=== PATIENT | female | born 1960 | race Caucasian/White ===

== ENCOUNTER 2017-06-23 17:58 | Inpatient (IN) | payer OTHER ==
[~2017-06-23] VITALS: Ht 165.1 cm; Wt 67.8 kg
[~2017-06-23 17:58] MED LIST: CYCL10TA PO; HYDR-3516 PO; METO25TA3 PO
[2017-06-23 18:25] VITALS: BP 146/72; PULSE 93; RESP 18; TEMP 98.2; O2SAT 95
--- NOTE | 2017-06-23 19:33 | RADRPT ---
EXAM DATE/TIME: 06/23/2017 18:58 [facility] COMPARISON: CHEST SINGLE AP, February 08, 2016, 21:05. INDICATIONS : Cough and short of breath. MEDICAL HISTORY : Bronchiectasis. SURGICAL HISTORY : None. ENCOUNTER: Initial ACUITY: 1 week PAIN SCORE: 0/10 LOCATION: Bilateral chest FINDINGS: PA and lateral views of the chest demonstrate the lungs to be symmetrically aerated with patchy infil trate in the anterior right middle lobe. There is apparent mild infiltrate in the anterior lingula. T he cardiomediastinal contours are unremarkable. Osseous structures are intact. CONCLUSION: Patchy infiltrate in the anterior right middle lobe and apparent mild or infiltrate i n the anterior lingula. The findings are of concern for pneumonia. Pedro Dennis MD on June 23, 2017 at 19:29 Board Certified Radiologist. This report was verified electronically.
[2017-06-23] MEDS ORDERED: SODIUM CHLOR 0.9% 1000 ML INJ 1,000 ML IV SCH (20:38)
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
[2017-06-23 20:47] VITALS: RESP 15; O2SAT 97
[2017-06-23] MEDS: RESP: ALBUTEROL 2.5 MG/IPRATROPIUM 0.5 MG NEB (SCH) INH (20:48)
[2017-06-23 21:08] LABS: AUTOMATED NEUTROPHIL # 17.4 TH/MM3 (1.8-7.7); BASOPHIL # 0.1 TH/MM3 (0-0.2); BASOPHIL % 0.4 % (0.0-2.0); EOSINOPHIL % 0.1 % (0.0-4.0); HEMATOCRIT 42.8 % (35.0-46.0); HEMOGLOBIN 14.6 GM/DL (11.6-15.3); LYMPH % 4.7 % (9.0-44.0); LYMPHOCYTE # 0.9 TH/MM3 (1.0-4.8); MEAN CELL VOLUME 90.3 FL (80.0-100.0); MEAN CORPUSCULAR HEMOGLOBIN 30.7 PG (27.0-34.0); MEAN PLATELET VOLUME 8.2 FL (7.0-11.0); MONO % 3.1 % (0.0-8.0); MONOCYTE # 0.6 TH/MM3 (0-0.9); NEUT % 91.7 % (16.0-70.0); PLATELET COUNT 360 TH/MM3 (150-450); RED BLOOD COUNT 4.74 MIL/MM3 (4.00-5.30); RED CELL DISTRIBUTION WIDTH 12.2 % (11.6-17.2)
[2017-06-23] MEDS ORDERED: cefTRIAXone INJ 2,000 MG in SODIUM CHLORIDE 0.9% INJ 100 ML IV ONE (21:15)
[2017-06-23] MEDS ORDERED: AZITHROMYCIN INJ 500 MG in SODIUM CHLOR 0.9% 250 ML INJ 250 ML IV ONE (21:15)
[2017-06-23 21:39] LABS: ALBUMIN 4.2 GM/DL (3.4-5.0); AST (GOT) 21 U/L (15-37); BICARBONATE 30.1 MEQ/L (21.0-32.0); BLOOD UREA NITROGEN 12 MG/DL (7-18); CALCIUM 9.5 MG/DL (8.5-10.1); CHLORIDE 102 MEQ/L (98-107); CREATININE 0.99 MG/DL (0.50-1.00); GLOMERULAR FILTRATION RATE 58 ML/MIN (>89); GLUCOSE,RANDOM 135 MG/DL (74-106); SODIUM (NA) 140 MEQ/L (136-145)
[2017-06-23 21:44] LABS: ALKALINE PHOSPHATASE 66 U/L (45-117); ALT (GPT) 26 U/L (10-53); TOTAL BILIRUBIN ADULT 0.7 MG/DL (0.2-1.0); TOTAL PROTEIN 8.5 GM/DL (6.4-8.2)
[2017-06-23 22:43] VITALS: BP 132/61; PULSE 93; RESP 16; TEMP 99.1; O2SAT 96
[2017-06-23] MEDS: SODIUM CHLOR 0.9% 1000 ML INJ 1,000 ML IV SCH (23:45)
[2017-06-24 00:54] VITALS: BP 116/55; PULSE 89; RESP 20; TEMP 98.3; O2SAT 96
[2017-06-24] MEDS ORDERED: ZOLPIDEM TARTRATE 10 MG TAB PO ONE (01:00)
[2017-06-24] MEDS: ACETAMINOPHEN 500 MG CPLT PO PRN ×2 (06:50→13:04)
[2017-06-24 08:05] VITALS: BP 109/56; PULSE 78; RESP 17; TEMP 98.5; O2SAT 95
--- NOTE | 2017-06-24 09:35 | HHI.HP ---
HPI Service [facility] Hospitalists Primary Care Physician Johnny Soto MD Admission Diagnosis pneumonia failed outpatient therapy Chief Complaint: continued dry cough is dry, lungs are congested, increased fatigue as well as chills, increased temperature with a maximum temperature of 99.5 Travel History International Travel<30 Days: Yes Contact w/Intl Traveler <30 Da: Yes Name of Country Traveled to: [place] Traveled to Known Affected Are: Yes History of Present Illness This Is a 57-year-old female with history of SVT followed by Dr. Trejo, osteopenia, allergic rhinitis and bronchiectasis who presents for evaluation. Patient went on a cruise to [place] in early May. She reports that initially she began having respiratory symptoms on June 05. Symptoms worsen and she developed cough, fever with maximum temperature 102.7 on June 09. She reports that she was prescribed a 10 day course of doxycycline which she started on June 09. She had significant improvement in her symptoms and she saw her billing and insurance coordinator Dr. Ross June 11. She completed the antibiotics on June 19. She reports that she has had a residual dry cough which worsened. In the ER patient reports that she developed increased fatigue as well as chills, increased temperature with a maximum temperature of 99.5 and this is what prompted her to come to the ER. She reports some chest discomfort when she coughs. She denies abdominal pain, nausea or vomiting, sore throat, rash. Patient reports this is the fourth time she has had pneumonia. Patient reports that she is feeling better today after receiving abx from the ER. Patient had Bronchoscopy November 15, 2015 for right middle lobe infiltrate- negative cultures and chronic inflammation noted on biopsy. Review of Systems Constitutional: COMPLAINS OF: Fatigue, Fever, Chills Respiratory: COMPLAINS OF: Cough, Wheezing, DENIES: Sputum production, Shortness of breath Cardiovascular: COMPLAINS OF: Chest pain (with cough), DENIES: Palpitations, Lower Extremity Edema Gastrointestinal: DENIES: Abdominal pain, Constipation, Diarrhea, Nausea, Vomiting Neurologic: DENIES: Abnormal gait, Headache, Localized weakness Psychiatric: DENIES: Anxiety, Confusion, Depression Past Family Social History Past Medical History osteopenia, allergic rhinitis and bronchiectasis Past Surgical History Exploratory laparotomy, eye surgery, hysterectomy, nephrectomy, right oophorectomy Reported Medications Metoprolol Tartrate 25 Mg Tab 12.5 Mg PO Q12HR Hydrocodone-Acetaminophen 5-325 mg Tab 1 Tab PO Q6H PRN Flexeril (Cyclobenzaprine HCl) 10 Mg Tab 5 Mg PO TID Allergies: Coded Allergies: No Known Allergies (Verified , 02/08/16) Family History Mother age 82 from HTN and chronic renal failure Father age 86 with hx of AF, hypotension and dementia Social History She is a nursery school attendant denies ETOH use, tobacco use or illicit drug use Physical Exam Vital Signs Vital Signs Date Time Temp Pulse Resp B/P (MAP) Pulse Ox O2 Delivery O2 Flow Rate FiO2 06/24/17 08:05 98.5 78 17 109/56 (73) 95 06/24/17 01:35 Room Air 06/24/17 00:54 98.3 89 20 116/55 (75) 96 06/23/17 23:18 06/23/17 22:43 99.1 93 16 132/61 (84) 96 06/23/17 20:47 15 97 Room Air 06/23/17 20:47 81 15 95 Room Air 06/23/17 18:25 98.2 93 18 146/72 (96) 95 Physical Exam GENERAL: This is a well-nourished, well-developed patient, in no apparent distress. SKIN: No rashes, ecchymoses or lesions. Cool and dry. HEAD: Atraumatic. Normocephalic. No temporal or scalp tenderness. EYES: Extraocular motions intact. No scleral icterus. No injection or drainage. CARDIOVASCULAR: Regular rate and rhythm RESPIRATORY: Clear to auscultation. Breath sounds equal bilaterally. GASTROINTESTINAL: Abdomen soft, non-tender, nondistended. MUSCULOSKELETAL: Extremities without clubbing, cyanosis, or edema. No joint tenderness, effusion, or edema noted. No calf tenderness. Negative Homans sign bilaterally. NEUROLOGICAL: Awake and alert. No focal deficits. Motor and sensory grossly within normal limits. Five out of 5 muscle strength in all muscle groups. Normal speech. Laboratory Laboratory Tests Test 06/23/17 20:55 White Blood Count 19.0 Red Blood Count 4.74 Hemoglobin 14.6 Hematocrit 42.8 Mean Corpuscular Volume 90.3 Mean Corpuscular Hemoglobin 30.7 Mean Corpuscular Hemoglobin Concent 34.0 Red Cell Distribution Width 12.2 Platelet Count 360 Mean Platelet Volume 8.2 Neutrophils (%) (Auto) 91.7 Lymphocytes (%) (Auto) 4.7 Monocytes (%) (Auto) 3.1 Eosinophils (%) (Auto) 0.1 Basophils (%) (Auto) 0.4 Neutrophils # (Auto) 17.4 Lymphocytes # (Auto) 0.9 Monocytes # (Auto) 0.6 Eosinophils # (Auto) 0.0 Basophils # (Auto) 0.1 CBC Comment DIFF FINAL Differential Comment Blood Urea Nitrogen 12 Creatinine 0.99 Random Glucose 135 Total Protein 8.5 Albumin 4.2 Calcium Level 9.5 Alkaline Phosphatase 66 Aspartate Amino Transf (AST/SGOT) 21 Alanine Aminotransferase (ALT/SGPT) 26 Total Bilirubin 0.7 Sodium Level 140 Potassium Level 3.5 Chloride Level 102 Carbon Dioxide Level 30.1 Anion Gap 8 Estimat Glomerular Filtration Rate 58 Lactic Acid Level 0.8 Date/Time Source Procedure Growth Status 06/23/17 21:00 Blood Peripheral Aerobic Blood Culture Pending Received 06/23/17 21:00 Blood Peripheral Anaerobic Blood Culture Pending Received Result Diagram: 06/23/[id number] Imaging Last Impressions Chest X-Ray 06/23/171827 Signed Impressions: Service Date/Time: Friday, June 23, 2017 18:58 - CONCLUSION: Patchy infiltrate in the anterior right middle lobe and apparent mild or infiltrate in the anterior lingula. The findings are of concern for pneumonia. MD Kartik Padilla VTE Risk Assessment [place] VTE Risk Assessment: No/Low Risk (score <= 1) Caprini Risk Assessment Model Point Value = 1 Point Value = 2 Point Value = 3 Point Value = 5 Age 41-60 Minor surgery BMI > 25 kg/m2 Swollen legs Varicose veins or History of unexplained or recurrent spontaneous Oral contraceptives or hormone replacement Sepsis (< 1 month) Serious lung disease, including pneumonia (< 1 month) Abnormal pulmonary function Acute myocardial infarction Congestive heart failure (< 1 month) History of inflammatory bowel disease Medical patient at bed rest Age 61-74 Arthroscopic surgery Major open surgery (> 45 min) Laparoscopic surgery (> 45 min) Malignancy Confined to bed (> 72 hours) Immobilizing plaster cast Central venous access Age >= 75 History of VTE Family history of VTE Factor V Leiden Prothrombin [id number] Lupus anticoagulant Anticardiolipin antibodies Elevated serum homocysteine Heparin-induced thrombocytopenia Other congenital or acquired thrombophilia Stroke (< 1 month) Elective arthroplasty Hip, pelvis, or leg fracture Acute spinal cord injury (< 1 month) Prophylaxis Regimen Total Risk Factor Score Risk Level Prophylaxis Regimen 0-1 Low Early ambulation 2 Moderate Order ONE of the following: *Sequential Compression Device (SCD) *Heparin 5000 units SQ BID 3-4 Higher Order ONE of the following medications: *Heparin 5000 units SQ TID *Enoxaparin/Lovenox 40 mg SQ daily (WT < 150 kg, CrCl > 30 mL/min) *Enoxaparin/Lovenox 30 mg SQ daily (WT < 150 kg, CrCl > 10-29 mL/min) *Enoxaparin/Lovenox 30 mg SQ BID (WT < 150 kg, CrCl > 30 mL/min) AND/OR *Sequential Compression Device (SCD) 5 or more Highest Order ONE of the following medications: *Heparin 5000 units SQ TID (Preferred with Epidurals) *Enoxaparin/Lovenox 40 mg SQ daily (WT < 150 kg, CrCl > 30 mL/min) *Enoxaparin/Lovenox 30 mg SQ daily (WT < 150 kg, CrCl > 10-29 mL/min) *Enoxaparin/Lovenox 30 mg SQ BID (WT < 150 kg, CrCl > 30 mL/min) AND *Sequential Compression Device (SCD) Assessment and Plan Problem List: (1) Community acquired pneumonia ICD Codes: J18.9 - Pneumonia, unspecified organism Status: Acute Plan: This Is a 57-year-old female with history of osteopenia, allergic rhinitis and bronchiectasis who presents for evaluation. Patient was recently had a trip to [place] early May then began having respiratory symptoms on June 05. She reports that she was prescribed a 10 day course of doxycycline which she started on June 09. She had significant improvement in her symptoms and she saw her billing and insurance coordinator Dr. Ross June 11. She completed the antibiotics on June 19. She reports that she has had a residual cough which worsened today. The cough is dry, she feels like her lungs are congested but she is unable to expectorate any sputum. She reports that today she developed increased fatigue as well as chills, increased temperature with a maximum temperature of 99.5 and this is what prompted evaluation today. She reports some chest discomfort when she coughs. Patient had Bronchoscopy November 15, 2015 for right middle lobe infiltrate- negative cultures and chronic inflammation noted on biopsy. PNA Chest x-ray reveals patchy infiltrate in the anterior right middle lobe and apparent mild infiltrate in the anterior lingula. CBC reveals a WBC count of 19 with 91.7% neutrophils. repeat labs in AM Patient was started on Rocephin and azithromycin IV. Continue Rocephin and azithromycin IV Add Duonebs Q6H while awake and PRN CT chest with IV contrast Patient follows with Dr. Ross- consult placed SVT continue home Metoprolol 12.5 mg BID DVT prophylaxis with SCDs Assessment and Plan Patient examined. Assessment and plan formulated with Mary Jane Albert PA-C. I agree with the above. Physician Certification 2 Midnight Certification Type: Admission for Inpatient Services Order for Inpatient Services The services are ordered in accordance with Medicare regulations or non- Medicare payer requirements, as applicable. In the case of services not specified as inpatient-only, they are appropriately provided as inpatient services in accordance with the 2-midnight benchmark. Estimated LOS (days): 3 days is the estimated time the patient will need to remain in the hospital, assuming treatment plan goals are met and no additional complications. Post-Hospital Plan: Mary Jane Chiu Jun 24, 2017 09:35 Jesus Manuel Ramsey DO Jun 26, 2017 23:32
[2017-06-24] MEDS: SODIUM CHLOR 0.9% 1000 ML INJ 1,000 ML IV SCH (09:47)
[2017-06-24 12:24] VITALS: BP 110/51; PULSE 75; RESP 17; TEMP 98.4; O2SAT 96
[2017-06-24] MEDS ORDERED: MONT10TA2 PO (12:34)
[2017-06-24] MEDS ORDERED: HUMIBIDDM PO (12:34)
[2017-06-24] MEDS ORDERED: PILL SPLITTER OTHER PRN (13:00)
[2017-06-24] MEDS: METOPROLOL TARTRATE 25 MG TAB PO SCH ×2 (13:04→20:17)
[2017-06-24] MEDS ORDERED: IOHEXOL 350 MG/ML 10 ML VIAL (for RAD DIAG) IVCONTRAST ONE (14:30)
--- NOTE | 2017-06-24 15:45 | RADRPT ---
EXAM DATE/TIME: 06/24/2017 14:20 [facility] COMPARISON: CT PULMONARY ANGIOGRAM, February 08, 2016, 22:10. INDICATIONS : Pneumonia. IV CONTRAST: 72 cc Omnipaque 350 (iohexol) IV RADIATION DOSE: 5.81 CTDIvol (mGy) MEDICAL HISTORY : None SURGICAL HISTORY : Hysterectomy. ENCOUNTER: Initial ACUITY: 1 day PAIN SCALE: 0/10 LOCATION: Bilateral chest TECHNIQUE: Volumetric scanning of the chest was performed. Using automated exposure control and adjustment of t he mA and/or kV according to patient size, radiation dose was kept as low as reasonably achievable to obtain optimal diagnostic quality images. DICOM format image data is available electronically for review and comparison. Follow-up recommendations for detected pulmonary nodules are based at a minimum on nodule size and pa tient risk factors according to Fleischner Society Guidelines. FINDINGS: LUNGS: Focal patchy density is noted within the right middle lobe raising the possibility of focal pneumonia , round atelectasis or mass. If this does not resolve after treatment for pneumonia, biopsy should be considered to rule out neoplasm. Chronic atelectasis/consolidation of the lingula of the left upper lobe is noted. Persistent reticulonodular infiltrate is again noted within the right lower lobe and u nchanged. PLEURA: There is no pleural thickening or pleural effusion. MEDIASTINUM: The heart and great vessels demonstrate no acute abnormality. There is no mediastinal or hilar lymph adenopathy. AXILLAE: Within normal limits. No lymphadenopathy. SKELETAL: Within normal limits for patient age. MISCELLANEOUS: The visualized upper abdominal organs demonstrate no acute abnormality. CONCLUSION: 1. Focal patchy density is noted within the right middle lobe raising the possibility of focal pneumo lashonda, round atelectasis or mass. If this does not resolve after treatment for pneumonia, biopsy should be considered to rule out neoplasm. 2. Stable chronic atelectasis and/or consolidation of the lingula of the left upper lobe. 3. Stable focal reticulonodular infiltrate within the right lower lobe. Thomas Alexander MD on June 24, 2017 at 15:36 Board Certified Radiologist. This report was verified electronically.
[2017-06-24 16:05] VITALS: BP 108/54; PULSE 69; RESP 18; TEMP 98.6; O2SAT 97
[2017-06-24 20:05] VITALS: BP 134/65; PULSE 80; RESP 16; TEMP 98.7; O2SAT 95
[2017-06-24] MEDS: guaiFENesin E.R. 600 MG TAB PO SCH (20:18)
[2017-06-24] MEDS ORDERED: MONTELUKAST SODIUM 10 MG TAB PO SCH (21:00)
--- NOTE | 2017-06-24 21:05 | MB ---
cc: Jaylen Ross MD, Arjun D MD DATE: 06/24/2017 REQUESTING PHYSICIAN: Dr. Jesus Manuel Ramsey REASON FOR CONSULTATION: Evaluation of pneumonia. HISTORY OF PRESENT ILLNESS: Ms. Trejo is a pleasant 57-year-old female, who is known to me from the office. She has a history of bronchiectasis and history of SVT. The patient recently had a chest infection, was treated with antibiotic for 10 days or so. She was feeling well. Yesterday, she says she was running around in the school because the testing was going on. While she was coming home, suddenly she started feeling very weak, tired, fatigued and was feeling a little congested and had low-grade fever. She did not have any chest pain. No nausea or vomiting. Because of these symptoms, she came to the hospital. She had a CT scan of the chest done, which shows that she has a focal patchy density noted in the right middle lobe for possible focal pneumonia. She also has chronic atelectatic changes in the lingula and stable reticular nodular infiltrates. Her WBC count is 19,000, hemoglobin 14.6, hematocrit 42.8, MCV 90, platelet count 360. Sodium 140, potassium 3.5, chloride 102, CO2 of 30, BUN 12, creatinine 0.99. Blood culture so far is negative. 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 MEDICATIONS: She is currently taking Singulair 10 mg, Mucinex 1200 mg twice a day, metoprolol 12.5 mg twice a day, Zithromax 500 mg a day. ALLERGIES: NO KNOWN DRUG ALLERGIES SOCIAL HISTORY: She is . She has no history of smoking or alcohol abuse. She worked as a teacher in [place]. She has no children. REVIEW OF SYSTEMS: She denies any weight loss or fatigue. No chest pain. No nausea or vomiting. PHYSICAL EXAMINATION: GENERAL: A pleasant, moderately-built, well-nourished female not in acute distress. VITAL SIGNS: Blood pressure 108/54, heart rate 69, respirations 18, temperature 98.6. 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 NECK: JVP not raised. CHEST: Air entry equal bilaterally. She has scattered rhonchi and crackles of the right chest. CARDIOVASCULAR: S1, S2 normal. ABDOMEN: Benign. EXTREMITIES: No edema. IMPRESSION: 1. Right upper and middle lobe infiltrate, likely community acquired pneumonia. 2. Bronchiectasis. 3. Lingular atelectasis. 4. The patient is blind from the left eye. 5. Leukocytosis. PLAN: I discussed with the patient. We will change her antibiotics to the p.o. antibiotics. Check her cultures. Check legionella and pneumococcal antigens. She is stable on room air and if leukocytosis is trending down, we will plan to discharge her home. She will need a repeat CT scan of the chest as outpatient for followup of the atelectasis and lung infiltrate. Further treatment will depend on the course in the hospital. Thank you, Roxy Toribio, for this consultation. MD JENNIFER Rivas//jose cruz , 08:05 PM , 08:35 PM
[2017-06-24] MEDS ORDERED: ZOLPIDEM TARTRATE 10 MG TAB PO PRN (21:45)
[2017-06-25 00:39] VITALS: BP 103/55; PULSE 76; RESP 16; TEMP 98.5; O2SAT 96
[2017-06-25 04:55] VITALS: BP 105/55; PULSE 67; RESP 16; TEMP 99; O2SAT 95
[2017-06-25 07:24] LABS: AUTOMATED NEUTROPHIL # 7.5 TH/MM3 (1.8-7.7); BASOPHIL % 0.5 % (0.0-2.0); EOSINOPHIL # 0.2 TH/MM3 (0-0.4); EOSINOPHIL % 1.8 % (0.0-4.0); HEMATOCRIT 38.5 % (35.0-46.0); HEMOGLOBIN 12.9 GM/DL (11.6-15.3); LYMPH % 13.4 % (9.0-44.0); LYMPHOCYTE # 1.3 TH/MM3 (1.0-4.8); MEAN CELL VOLUME 90.6 FL (80.0-100.0); MEAN CORPUSCULAR HEMOGLOBIN 30.4 PG (27.0-34.0); MEAN CORPUSCULAR HGB CONC 33.6 % (32.0-36.0); MEAN PLATELET VOLUME 8.5 FL (7.0-11.0); MONO % 6.9 % (0.0-8.0); MONOCYTE # 0.7 TH/MM3 (0-0.9); NEUT % 77.4 % (16.0-70.0); PLATELET COUNT 323 TH/MM3 (150-450); RED BLOOD COUNT 4.25 MIL/MM3 (4.00-5.30); RED CELL DISTRIBUTION WIDTH 12.4 % (11.6-17.2); WHITE BLOOD COUNT 9.7 TH/MM3 (4.0-11.0)
[2017-06-25 07:40] LABS: BICARBONATE 27.1 MEQ/L (21.0-32.0); CALCIUM 8.8 MG/DL (8.5-10.1); CREATININE 0.79 MG/DL (0.50-1.00); MAGNESIUM 2.1 MG/DL (1.5-2.5)
[2017-06-25] MEDS: RESP: ALBUTEROL 2.5 MG/IPRATROPIUM 0.5 MG NEB (SCH) NEB ×2 (08:03→12:29)
[2017-06-25 08:07] VITALS: BP 131/59; PULSE 74; RESP 15; TEMP 98.2; O2SAT 95
[2017-06-25] MEDS: METOPROLOL TARTRATE 25 MG TAB PO SCH (08:34)
[2017-06-25] MEDS: guaiFENesin E.R. 600 MG TAB PO SCH (08:35)
[2017-06-25] MEDS ORDERED: LEVO500T8 PO ×4 (09:10→14:48)
--- NOTE | 2017-06-25 09:11 | HHI.DCPOC ---
Discharge Care Plan Diagnosis: (1) Leukocytosis (2) Community acquired pneumonia Goals to Promote Your Health * To prevent worsening of your condition and complications * To maintain your health at the optimal level Directions to Meet Your Goals Take your medications as prescribed Follow your dietary instruction Follow activity as directed Keep your appointments as scheduled Take your immunizations and boosters as scheduled If your symptoms worsen call your PCP, if no PCP go to Urgent Care Center or Emergency Room Smoking is Dangerous to Your Health. Avoid second hand smoke Call the 24-hour hour crisis hotline for domestic abuse at Mary Jane Albert Jun 25, 2017 09:11 Jesus Manuel Ramsey DO Jun 26, 2017 23:33
--- NOTE | 2017-06-25 09:19 | HHI.DS ---
Discharge Summary Admission Date Jun 23, 2017 at 22:09 Discharge Date: Jun 25, 2017 Admitting Diagnosis pneumonia failed outpatient therapy (1) Community acquired pneumonia Diagnosis: Principal ICD Codes: J18.9 - Pneumonia, unspecified organism Status: Acute Consultants Dr. Ross, Pulmonology Procedures none Brief History This Is a 57-year-old female with history of SVT followed by Dr. Trejo, osteopenia, allergic rhinitis and bronchiectasis who presents for evaluation. Patient went on a cruise to [place] in early May. She reports that initially she began having respiratory symptoms on June 05. Symptoms worsen and she developed cough, fever with maximum temperature 102.7 on June 09. She reports that she was prescribed a 10 day course of doxycycline which she started on June 09. She had significant improvement in her symptoms and she saw her oracle database administrator Dr. Ross June 11. She completed the antibiotics on June 19. She reports that she has had a residual dry cough which worsened. In the ER patient reports that she developed increased fatigue as well as chills, increased temperature with a maximum temperature of 99.5 and this is what prompted her to come to the ER. She reports some chest discomfort when she coughs. She denies abdominal pain, nausea or vomiting, sore throat, rash. Patient reports this is the fourth time she has had pneumonia. Patient reports that she is feeling better today after receiving abx from the ER. Patient had Bronchoscopy November 15, 2015 for right middle lobe infiltrate- negative cultures and chronic inflammation noted on biopsy. CBC/BMP: 06/25/17 0620 06/25/17 0620 Significant Findings Laboratory Tests Test 06/23/17 20:55 06/25/17 06:20 White Blood Count 19.0 TH/MM3 (4.0-11.0) Neutrophils (%) (Auto) 91.7 % (16.0-70.0) 77.4 % (16.0-70.0) Lymphocytes (%) (Auto) 4.7 % (9.0-44.0) Neutrophils # (Auto) 17.4 TH/MM3 (1.8-7.7) Lymphocytes # (Auto) 0.9 TH/MM3 (1.0-4.8) Random Glucose 135 MG/DL (74-106) Total Protein 8.5 GM/DL (6.4-8.2) Estimat Glomerular Filtration Rate 58 ML/MIN (>89) 75 ML/MIN (>89) Imaging Last Impressions Chest CT 06/24/17 0000 Signed Impressions: Service Date/Time: Saturday, June 24, 2017 14:20 - CONCLUSION: 1. Focal patchy density is noted within the right middle lobe raising the possibility of focal pneumonia, round atelectasis or mass. If this does not resolve after treatment for pneumonia, biopsy should be considered to rule out neoplasm. 2. Stable chronic atelectasis and/or consolidation of the lingula of the left upper lobe. 3. Stable focal reticulonodular infiltrate within the right lower lobe. Thomas Alexander MD Chest X-Ray 06/23/17 1828 Signed Impressions: Service Date/Time: Friday, June 23, 2017 18:58 - CONCLUSION: Patchy infiltrate in the anterior right middle lobe and apparent mild or infiltrate in the anterior lingula. The findings are of concern for pneumonia. Pedro Dennis MD PE at Discharge GENERAL: This is a well-nourished, well-developed patient, in no apparent distress. CARDIOVASCULAR: Regular rate and rhythm RESPIRATORY: Clear to auscultation. Breath sounds equal bilaterally. GASTROINTESTINAL: Abdomen soft, non-tender, nondistended. Normal active bowel sounds MUSCULOSKELETAL: Extremities without clubbing, cyanosis, or edema. NEURO: Alert & Oriented x4 to person, place, time, situation. Moves all ext x4 Hospital Course This Is a 57-year-old female with history of osteopenia, allergic rhinitis and bronchiectasis who presents for evaluation. Patient was recently had a trip to [place] early May then began having respiratory symptoms on June 05. She reports that she was prescribed a 10 day course of doxycycline which she started on June 09. She had significant improvement in her symptoms and she saw her oracle database administrator Dr. Ross June 11. She completed the antibiotics on June 19. She reports that she has had a residual cough which worsened today. The cough is dry, she feels like her lungs are congested but she is unable to expectorate any sputum. She reports that today she developed increased fatigue as well as chills, increased temperature with a maximum temperature of 99.5 and this is what prompted evaluation today. She reports some chest discomfort when she coughs. Patient had Bronchoscopy November 15, 2015 for right middle lobe infiltrate- negative cultures and chronic inflammation noted on biopsy. PNA Chest x-ray reveals patchy infiltrate in the anterior right middle lobe and apparent mild infiltrate in the anterior lingula. CBC 06/24 reveals a WBC count of 19 with 91.7% neutrophils -> 06/25 WBC 9.7, neutrophils 77.4 % Patient was started on Rocephin and azithromycin IV. changed to PO Levaquin Duonebs Q6H while awake and PRN CT chest with IV contrast reveals: Focal patchy density within the right middle lobe raising the possibility of focal pneumonia, round atelectasis or mass. If this does not resolve after treatment for pneumonia, biopsy should be considered to rule out neoplasm. Stable chronic atelectasis and/or consolidation of the lingula of the left upper lobe. Small focal reticulonodular infiltrate within the right lower lobe. - Patient will need follow-up CT scan outpatient once pneumonia treatment completed, patient follows with Dr. Cody Ross- consult placed, appreciate input Legionella antigen and Streptococcus antigen negative SVT continue home Metoprolol 12.5 mg BID DVT prophylaxis with SCDs Pt Condition on Discharge: Stable Discharge Disposition: Discharge Home Discharge Instructions DIET: Follow Instructions for: As Tolerated, No Restrictions Follow up Referrals: PCP Follow-up - [address] Soto Pulmonology - 2 Weeks with Jaylen Ross MD New Medications: Levofloxacin (Levofloxacin) 500 Mg Tablet 500 MG PO DAILY for Infection, #8 TAB 0 Refills Continued Medications: Dextromethorphan-Guaifenesin (Mucinex DM) 30-600 Mg Tab 1 TAB PO BID PRN for CHEST CONGESTION AND/OR COUGH, TAB 0 Refills Metoprolol Tartrate (Metoprolol Tartrate) 25 Mg Tab 12.5 MG PO Q12HR for tachycardia, #60 TAB 3 Refills Montelukast (Singulair) 10 Mg Tab 10 MG PO HS, #30 TAB 0 Refills Additional Information Patient examined. Assessment and plan formulated with Mary Jane Albert PA-C. I agree with the above. Mary Jane Albert Jun 25, 2017 09:19 Jesus Manuel Ramsey DO Jun 26, 2017 23:33
[2017-06-25] MEDS ORDERED: LEVOFLOXACIN 500 MG TAB PO SCH (11:00)
[2017-06-25 12:12] VITALS: BP 123/57; PULSE 75; RESP 17; TEMP 98; O2SAT 98
--- NOTE | 2017-06-25 14:29 | HHI.DCPOC ---
Discharge Care Plan Diagnosis: (1) Pneumonia (2) Lung infiltrate (3) Community acquired pneumonia Goals to Promote Your Health * To prevent worsening of your condition and complications * To maintain your health at the optimal level Directions to Meet Your Goals Take your medications as prescribed Follow your dietary instruction Follow activity as directed Keep your appointments as scheduled Take your immunizations and boosters as scheduled If your symptoms worsen call your PCP, if no PCP go to Urgent Care Center or Emergency Room Smoking is Dangerous to Your Health. Avoid second hand smoke Call the 24-hour hour crisis hotline for domestic abuse at Jesus Manuel Ramsey DO Jun 25, 2017 14:29
== END 2017-06-25 15:15 | disposition home or self-care (01) | DRG 194 ==
LOC: NEPC 17:58 → NEDA 22:09 → N04B 22:49
PROVIDERS: ADMIT Hospitalist; ATTEND Hospitalist
DX: J18.9 Pneumonia, unspecified organism (principal); J47.0 Bronchiectasis with acute lower respiratory infection; I47.1 Supraventricular tachycardia; J98.11 Atelectasis; H54.62 Unqualified visual loss, left eye, normal vision right eye; Z87.01 Personal history of pneumonia (recurrent)
CPT/HCPCS: 71046; 71260; 80048; 80053; 83605; 83735; 85025; 87040; 87449; 94640; 94664; 96365; J0456; J0696; J7030; J7050; Q9967